=== PATIENT | female | born 2000 | race Asian ===

== ENCOUNTER 2020-03-23 04:44 | Emergency (ER) | payer MEDICAID ==
[~2020-03-23] VITALS: Ht 160 cm; Wt 54.4 kg
[2020-03-23 06:55] VITALS: BP 120/72
[2020-03-23] MEDS ORDERED: methylPREDNISolone SOD SUCC 125 MG/2 ML VL IM ONE (07:00)
[2020-03-23] MEDS ORDERED: EPINEPHrine HCL 1 MG/1 ML AMP SC ONE (07:00)
== END 2020-03-23 07:46 | disposition home or self-care (01) ==
LOC: ER 04:44
DX: T78.40XA Allergy, unspecified, initial encounter (principal); X58.XXXA Exposure to other specified factors, initial encounter
CPT/HCPCS: 96372; 99284; J0171; J2930